=== PATIENT | female | born 1995 | race African-American/Black ===

== ENCOUNTER 2019-03-01 20:25 | Emergency (ER) | payer OTHER ==
[~2019-03-01] VITALS: Ht 165.1 cm; Wt 73.0 kg
[2019-03-01 20:54] VITALS: BP 111/72
== END 2019-03-01 23:32 | disposition home or self-care (01) ==
LOC: ER 20:25
DX: H10.9 Unspecified conjunctivitis (principal)
CPT/HCPCS: 99283